=== PATIENT | female | born 1990 | race Hispanic/Latino ===

== ENCOUNTER 2018-09-22 19:19 | Emergency (ER) | payer OTHER ==
[2018-09-22 19:25] VITALS: TEMP 98.3
--- NOTE | 2018-09-22 19:42 | ED PDOC ---
HPI: Headache Time Seen by Provider: 09/22/18 19:32 Chief Complaint (Nursing): Headache Chief Complaint (Provider): Head injury History Per: Patient History/Exam Limitations: no limitations Onset/Duration Of Symptoms: Days (yesterday) Current Symptoms Are (Timing): Still Present Additional Complaint(s): Pt. was intoxicated last night and accidentally fell in her bathtub. Next thing she knows she is on all fours. Has pain to the right head. Feels light-headed and nausea/vomited. Pt. with no neck pain, chest pain, dyspnea, abd pain. Has pain to the right shoulder but able to move shoulder with no issues. Unclear if LOC. Past Medical History Reviewed: Nursing Documentation, Vital Signs Vital Signs: Last Vital Signs Temp 98.3 F 09/22/18 19:23 Pulse 88 09/22/18 19:23 Resp 17 09/22/18 19:23 BP 133/89 09/22/18 19:23 Pulse Ox 100 09/22/18 19:23 - Medical History PMH: No Chronic Diseases - Surgical History Surgical History: No Surg Hx - Family History Family History: States: Unknown Family Hx - Home Medications Home Medications: Ambulatory Orders Medication Instructions Recorded Ondansetron ODT [Zofran ODT] 4 mg PO TID PRN #8 odt 09/22/18 - Allergies Allergies/Adverse Reactions: Allergies Allergy/AdvReac Type Severity Reaction Status Date / Time No Known Allergies Allergy Verified 09/22/18 19:25 Review of Systems ROS Statement: Except As Marked, All Systems Reviewed And Found Negative Eyes: Negative for: Pain, Vision Change ENT: Negative for: Nose Discharge, Nose Congestion Cardiovascular: Negative for: Chest Pain Gastrointestinal: Positive for: Nausea, Vomiting Musculoskeletal: Positive for: Shoulder Pain Neurological: Positive for: Headache Physical Exam - Reviewed Nursing Documentation Reviewed: Yes Vital Signs Reviewed: Yes - Physical Exam Appears: Positive for: Non-toxic, No Acute Distress Head Exam: Positive for: NORMOCEPHALIC. Negative for: ATRAUMATIC (R forehead above right eye brow with hematoma 1cm diameter; tender. Mild right periorbital echymosis. ) Skin: Positive for: Normal Color, Warm, DRY Eye Exam: Positive for: EOMI, PERRL, Periorbital tenderness (mild right), Other (R eye lateral subconjunctival hemorrhage). Negative for: Nystagmus ENT: Positive for: Normal ENT Inspection Neck: Positive for: Normal, Painless ROM, Supple, Trachea Midline. Negative for: Decreased ROM Cardiovascular/Chest: Positive for: Regular Rate, Rhythm Respiratory: Positive for: CNT, Normal Breath Sounds Gastrointestinal/Abdominal: Positive for: Normal Exam, Soft. Negative for: Tenderness Back: Positive for: Normal Inspection. Negative for: L CVA Tenderness, R CVA Tenderness Extremity: Positive for: Normal ROM, Tenderness (R shoulder anterior mild with echymosis). Negative for: Pedal Edema, Calf Tenderness Neurological/Psych: Positive for: Awake, Alert, Normal Tone, cafeteria manager II-XII. Negative for: Motor/Sensory Deficits, Facial Droop - ECG O2 Sat by Pulse Oximetry: 100 Pulse Ox Interpretation: Normal - CT Scan/US ct Other Rad Studies (CT/US): Read By Radiologist Other Rad Interpretation: no acute - Progress ED Course And Treament: 1944: Pt. does not want x-rays of shoulder. 2109: Stable. AAOx3. Pain free. Tolerated po. Fu with pcp. Ambulated with no issues. Disposition - Clinical Impression Clinical Impression: Head injury - Patient ED Disposition Is Patient to be Admitted: No Counseled Patient/Family Regarding: Studies Performed, Diagnosis, Need For Followup, Rx Given - Disposition Referrals: [facility] [Outside] - 09/23/18 Disposition: Routine/Home Disposition Time: 21:18 Condition: STABLE Additional Instructions: Return if not better in 3 days. Prescriptions: Ondansetron ODT [Zofran ODT] 4 mg PO TID PRN #8 odt PRN Reason: Nausea/Vomiting Instructions: Closed Head Injury Forms: [facility] (Vietnamese), [facility] School/Work Excuse
[2018-09-22 21:42] VITALS: BP 125/84; PULSE 87; RESP 18; O2SAT 99
--- NOTE | 2018-09-23 11:24 | CT ---
Date of service: 09/22/2018 PROCEDURE: CT HEAD WITHOUT CONTRAST. HISTORY: headache COMPARISON: None available. TECHNIQUE: Axial computed tomography images were obtained through the head/brain without intravenous contrast. Radiation dose: Total exam DLP = 1312.28 mGy-cm. This CT exam was performed using one or more of the following dose reduction techniques: Automated exposure control, adjustment of the mA and/or kV according to patient size, and/or use of iterative reconstruction technique. FINDINGS: HEMORRHAGE: No intracranial hemorrhage. BRAIN: Normal garcia-white matter differentiation and density are appreciated throughout the cerebrum and cerebellum with the brainstem appearing unremarkable as well. There is no mass effect. There is no suspicious extra-axial fluid collection and the midline brain anatomy appears diffusely unremarkable. VENTRICLES: Unremarkable. No hydrocephalus. CALVARIUM: Unremarkable. PARANASAL SINUSES: Unremarkable as visualized. No significant inflammatory changes. MASTOID AIR CELLS: Unremarkable as visualized. No inflammatory changes. OTHER FINDINGS: None. IMPRESSION: Unremarkable unenhanced head CT. Concordant preliminary report from [facility], 09/22/2018, 9:03 p.m..
--- NOTE | 2018-09-23 11:30 | CT ---
Date of service: 09/22/2018 PROCEDURE: CT MAXILLOFACIAL BONES WITHOUT CONTRAST HISTORY: facial pain COMPARISON: None available. TECHNIQUE: Contiguous axial CT images of the maxillofacial bones were obtained. Coronal and sagittal reformats were generated. Radiation dose: Total exam DLP = 1312.28 mGy-cm. This CT exam was performed using one or more of the following dose reduction techniques: Automated exposure control, adjustment of the mA and/or kV according to patient size, and/or use of iterative reconstruction technique. FINDINGS: NASAL BONES: Unremarkable. ORBITS: Unremarkable. PARANASAL SINUSES/ MASTOIDS: Minimal mucoid material identified at the lateral margins right sphenoid sinus. Leftward bony nasal septal deviation. MAXILLA: Unremarkable. MANDIBLE/ TEMPOROMANDIBULAR JOINTS: Unremarkable. SKULL BASE: Unremarkable. TEMPORAL BONES: Middle ears and mastoid grossly unremarkable. OTHER FINDINGS: None. IMPRESSION: No fracture or destructive bony lesion appreciable. Minimal right sphenoid sinus disease. Leftward bony nasal septal deviation. No definite suspicious soft tissue findings. Concordant preliminary report from [facility], 09/22/2018, 9:03 p.m..
== END 2018-09-22 21:19 | disposition home or self-care (01) ==
LOC: H.ER 19:19
DX: S09.90XA Unspecified injury of head, initial encounter (principal); W19.XXXA Unspecified fall, initial encounter; Y93.E1 Activity, personal bathing and showering; J34.2 Deviated nasal septum